=== PATIENT | male | born 1975 | race American Indian/Alaskan Native ===

== ENCOUNTER 2017-06-07 12:39 | Emergency (ER) | payer OTHER ==
[2017-06-07 13:15] VITALS: BP 160/103
--- NOTE | 2017-06-07 13:57 | XRay Report ---
RIGHT HAND, 2 views: History: Pain. The bony architecture is intact. Bony alignment is normal. No soft tissue abnormalities are seen. The joint spaces appear preserved. IMPRESSION: Normal right hand.
== END 2017-06-07 14:15 | disposition left against medical advice (07) ==
LOC: ED 12:39
DX: M79.644 Pain in right finger(s) (principal); M79.641 Pain in right hand; Z53.21 Procedure and treatment not carried out due to patient leaving prior to being seen by health care provider